=== PATIENT | female | born 1990 ===

== ENCOUNTER 2018-09-25 09:05 | Emergency (ER) | payer BC ==
[2018-09-25 09:13] VITALS: O2SAT 98; BMI 21.1
[2018-09-25] MEDS ORDERED: Sodium Chloride 0.9% 1,000 ML IV STA (09:46)
[2018-09-25 10:16] LABS: BASO % 0.2 % (0.0-2.0); EOS % 0.1 % (0.0-4.0); HEMOGLOBIN 12.6 g/dL (12.0-16.0); LYMPH # 0.9 K/uL (1.0-4.3); LYMPH % 11.5 % (20.0-40.0); MEAN CORPUSCULAR HEMOGLOBIN 24.6 pg (27.0-31.0); MEAN CORPUSCULAR HGB CONC 32.7 g/dL (33.0-37.0); MEAN PLATELET VOLUME 8.1 fl (7.2-11.7); MONO # 0.4 K/uL (0.0-0.8); MONO % 4.4 % (0.0-10.0); NEUT # 6.7 K/uL (1.8-7.0); NEUT % 83.8 % (50.0-75.0); NRBC % 0.1 % (0.0-0.0); RBC 5.14 Mil/uL (3.80-5.20); RED CELL DISTRIBUTION WIDTH 16.3 % (11.5-14.5)
[2018-09-25 10:25] LABS: ALB/GLOB RATIO 1.1 (1.0-2.1); ALBUMIN 3.9 g/dL (3.5-5.0); ALT/SGPT 46 U/L (9-52); AST/SGOT 42 U/L (14-36); BLOOD UREA NITROGEN 7 mg/dl (7-17); CALCIUM 9.3 mg/dL (8.4-10.2); GFR NON-AFRICAN AMERICAN > 60
[2018-09-25] MEDS ORDERED: Lactated Ringer's 1,000 ML IV SCH (11:45)
--- NOTE | 2018-09-25 12:34 | ED PDOC ---
History of Present Illness History of Present Illness: 28yo female presents from [facility] for persistent low grade fevers, fatigue, nausea and several epiosodes nonbloody vomiting over last day. Denies abdominal pain, headache, sore throat, cough, shortness of breath, rash, foreign travel, neck pain or body aches other than mild low back discomfort. 4 months post , but menses returned and normal. No urinary symptoms. Flu test neg and UA no WBC at [facility] per her copy of report. HPI: Influenza Time Seen by Provider: 09/25/18 09:19 Chief Complaint: Flu-like Symptoms Chief Complaint (Provider): fever History Per: Patient Exam Limitations: no limitations Onset/Duration Of Symptoms: Days (4) Symptoms include: fever, vomiting. denies: headache, bodyaches, sore throat, cough, nasal congestion, diarrhea, syncope, chest pain, difficulty breathing, seizure, rash, blurry vision Sick Contacts (Context): None Hx Influenza Vaccination: Yes Risk factors for flu complications: No: adult > 65 years, child < 5 years, child < 2 years, , chronic lung disease, endocrine disorders, heart disease, renal disease, metabolic disease, hematologic disease, immunosuppression, obesity (BMI > 40), intermediate resident, <19 years of age on senior care ASA therapy, neurologic disease Past Medical History Reviewed: Historical Data Vital Signs: Last Vital Signs Temp 100.5 F H 09/25/18 09:24 Pulse 108 H 09/25/18 09:24 Resp 18 09/25/18 09:24 BP 107/71 09/25/18 09:24 Pulse Ox 98 09/25/18 09:24 - Medical History PMH: No Chronic Diseases Denies: Chronic Kidney Disease - Family History Family History: States: Unknown Family Hx - Living Arrangements Living Arrangements: With Family - Immunization History Hx Tetanus Toxoid Vaccination: No Hx Influenza Vaccination: Yes Hx Pneumococcal Vaccination: No - Home Medications Home Medications: Ambulatory Orders Medication Instructions Recorded Multivit/Folic Acid/I 1 tab PO DAILY 12/24/17 [ Plus] Ondansetron ODT [Zofran ODT] 4 mg PO Q6 PRN #10 odt 09/25/18 - Allergies Allergies/Adverse Reactions: Allergies Allergy/AdvReac Type Severity Reaction Status Date / Time No Known Allergies Allergy Verified 12/24/17 18:28 Review of Systems ROS Statement: Except As Marked, All Systems Reviewed And Found Negative Constitutional: Positive for: Fever, Chills, Malaise, Other (fatigue) Eyes: Negative for: Conjunctivae Inflammation ENT: Negative for: Ear Pain, Throat Pain Cardiovascular: Negative for: Chest Pain, Palpitations Respiratory: Negative for: Cough, Shortness of Breath, Hemoptysis, Pleuritic Pain Gastrointestinal: Positive for: Nausea, Vomiting. Negative for: Abdominal Pain, Diarrhea, Constipation, Melena Genitourinary Female: Negative for: Dysuria Musculoskeletal: Positive for: Back Pain. Negative for: Neck Pain, Arm Pain, Leg Pain Skin: Negative for: Rash, Lesions Neurological: Positive for: Other (fatigue). Negative for: Weakness, Numbness, Seizures, Headache, Dizziness Psych: Negative for: Suicidal ideation Physical Exam - Reviewed Nursing Documentation Reviewed: Yes Vital Signs Reviewed: Yes - Physical Exam Appears: Positive for: Well, Non-toxic, No Acute Distress Head Exam: Positive for: ATRAUMATIC, NORMAL INSPECTION, NORMOCEPHALIC Skin: Positive for: Normal Color, Warm, DRY Eye Exam: Positive for: EOMI, Normal appearance, PERRL ENT: Positive for: TM Is/Are (unremarkable). Negative for: Pharyngeal Erythema, Tonsillar Exudate, Tonsillar Swelling Neck: Positive for: Normal, Painless ROM Cardiovascular/Chest: Positive for: Regular Rate, Rhythm Respiratory: Positive for: Normal Breath Sounds. Negative for: Rhonchi, Wheezing Gastrointestinal/Abdominal: Positive for: Soft. Negative for: Tenderness (x4 q uadrants), Guarding Back: Positive for: Normal Inspection. Negative for: L CVA Tenderness, R CVA Tenderness Extremity: Positive for: Normal ROM Neurological/Psych: Positive for: Awake, Alert, Normal Tone, Oriented. Negative for: Motor/Sensory Deficits, Facial Droop Medical Decision Making Medical Decision Making: labs reviewed flu neg here also WBC normal blood sent for culture U dip TR ketones neg leuks monospot sent given fatigue UA no WBC or leuk est, culture sent re-eval 1pm hungry, PO challenge initiated re-eval 2pm improved, tolerated PO no vomiting, abd exam nontender x4 quadrants Followup instructions provided and indications for return discussed at length, questions answered. Followup cultures and mono. - Laboratory Results Result Diagrams: 09/25/18 10:00 09/25/18 10:00 Lab Results: Total Bilirubin 0.6 mg/dl (0.2-1.3) 09/25/18 10:00 AST 42 U/L (14-36) H D 09/25/18 10:00 ALT 46 U/L (9-52) 09/25/18 10:00 Alkaline Phosphatase 63 U/L (38-126) 09/25/18 10:00 Total Protein 7.5 G/DL (6.3-8.2) 09/25/18 10:00 Albumin 3.9 g/dL (3.5-5.0) 09/25/18 10:00 Globulin 3.6 gm/dL (2.2-3.9) 09/25/18 10:00 Albumin/Globulin Ratio 1.1 (1.0-2.1) 09/25/18 10:00 - ECG O2 Sat by Pulse Oximetry: 98 Disposition - Clinical Impression Clinical Impression: Influenza-like symptoms, Vomiting - Patient ED Disposition Is Patient to be Admitted: No Counseled Patient/Family Regarding: Studies Performed, Diagnosis, Need For Followup, Rx Given - Disposition Referrals: Edwin Silverio MD [Staff Provider] - Disposition: Routine/Home Disposition Time: 13:55 Condition: STABLE Additional Instructions: Take medication for nausea as indicated and needed, under the tongue every 4-6 hours. Return to ER for any fever >104, worsening symptoms, neck pain/headache/rash, abdominal pain, or any concern. Use motrin or tylenol for fever. Prescriptions: Ondansetron ODT [Zofran ODT] 4 mg PO Q6 PRN #10 odt PRN Reason: Nausea/Vomiting Instructions: Nausea and Vomiting, Adult (DC), Fever, Adult (DC) Forms: [employer] (Bhutanese)
[2018-09-25 13:18] LABS: SQUAMOUS EPITHIAL 4 /hpf (0-5); URINE AMORPHOUS SEDIMENT RARE /ul (<OCC); URINE BACTERIA OCC (<OCC); URINE BILIRUBIN NEGATIVE (NEGATIVE); URINE BLOOD NEGATIVE (NEGATIVE); URINE CLARITY CLEAR (Clear); URINE COLOR YELLOW (YELLOW); URINE GLUCOSE (UA) NEG (NEGATIVE); URINE LEUKOCYTE ESTERASE NEG Leu/uL (Negative); URINE PROTEIN NEGATIVE (NEGATIVE); URINE UROBILINOGEN 0.2-1.0 mg/dL (0.2-1.0)
[2018-09-25 14:13] VITALS: BP 110/70; PULSE 88; RESP 17
[2018-09-25 14:15] VITALS: TEMP 99.1
== END 2018-09-25 14:05 | disposition home or self-care (01) ==
LOC: H.ER 09:05
DX: J11.1 Influenza due to unidentified influenza virus with other respiratory manifestations (principal); R11.10 Vomiting, unspecified
CPT/HCPCS: 80053; 81003; 81025; 85025; 86664; 86665; 87040; 87086; 87804; 96360; 96361; 99284; J7030; J7120